=== PATIENT | female | born 1990 | race Caucasian/White ===

== ENCOUNTER 2019-10-05 00:05 | Emergency (ER) | payer OTHER ==
[~2019-10-05] VITALS: Ht 170.2 cm; Wt 59.0 kg
[2019-10-05 00:12] VITALS: BP 141/89
[2019-10-05 00:24] VITALS: BP 141/89
--- NOTE | 2019-10-05 00:24 | NUR ---
PATIENT [facility] [employer] [facility]. PATIENT EXAMINED BY DR. HORNE. PATIENT MEDICALLY CLEARED AND RELEASED IN CUSTODY IN STABLE CONDITION. ORIGINAL PRE-BOOK FORM GIVEN TO OFFICER Todd ALVAREZ.
== END 2019-10-05 00:24 ==
LOC: MED 00:05
DX: F15.10 Other stimulant abuse, uncomplicated (principal); Z02.89 Encounter for other administrative examinations
CPT/HCPCS: 99283